=== PATIENT | female | born 1990 | race Caucasian/White ===

== ENCOUNTER 2017-03-24 19:04 | Emergency (ER) | payer BC ==
[~2017-03-24] VITALS: Ht 160 cm; Wt 108.3 kg
[2017-03-24 19:09] VITALS: TEMP 36.7; Ht 160 cm; Wt 108.3 kg
[2017-03-24] MEDS ORDERED: KETOROLAC TROMETHAMINE 30 MG/ML VIAL IV STA (19:36)
[2017-03-24] MEDS ORDERED: SODIUM CHLORIDE 0.9% 1000ML 1,000 ML IV STA (19:36)
[2017-03-24] MEDS ORDERED: PROCHLORPERAZINE 5 MG/ML 2 ML VIAL IV STA (19:36)
[2017-03-24] MEDS ORDERED: LITH1TAB10 PO (19:52)
[2017-03-24] MEDS ORDERED: PRED20TA PO (19:52)
[2017-03-24 20:23] LABS: URINE APPEARANCE CLEAR (CLEAR); URINE BILIRUBIN NEG (NEG); URINE COLOR YELLOW; URINE NITRITE NEG (NEG); URINE PH 5.5 (4.5-7.5); URINE SPECIFIC GRAVITY 1.016 (1.000-1.030); UROBILINOGEN NEG (NEG)
[2017-03-24 20:33] LABS: MANUAL MICROSCOPIC REQUIRED? NO; REVIEW REQ? NO
[2017-03-24 20:47] LABS: BASO % 0.2 %; BASO ABS # 0.02 K/uL (0-0.2); COMPLETE YES; EOS % 0.8 %; HEMATOCRIT 41.6 % (37-47); IG% 0.3 %; LYMPH % 32.2 %; LYMPH ABS # 3.58 K/uL (1.2-3.4); MEAN CORPUSCULAR HEMOGLOBIN 31.9 pg (25-34); MEAN CORPUSCULAR HGB CONC 35.1 g/dl (32-36); MEAN PLATELET VOLUME 9.1 fL (7.4-10.4); MONO % 7.6 %; NEUT % 58.9 %; PLATELET COUNT 224 K/uL (130-400); RED BLOOD COUNT 4.57 M/uL (4.2-5.4); WHITE BLOOD COUNT 11.12 K/uL (4.8-10.8)
[2017-03-24 21:09] LABS: BUN/CREATININE RATIO 14.9 (10-20); CALCIUM 8.5 mg/dl (8.5-10.1); CREATININE 0.53 mg/dl (0.60-1.20); POTASSIUM 3.1 mmol/L (3.5-5.1)
[2017-03-24 21:12] LABS: ALB/GLOB RATIO 1.4 (0.9-2)
--- NOTE | 2017-03-24 21:57 | EMERGENCY ROOM VISIT NOTE ---
ED Visit Note First contact with patient: 19:16 CHIEF COMPLAINT: Migraine headache HISTORY OF PRESENT ILLNESS: This 27-year-old female patient presented to the emergency department with her father complaints of a chronic daily migraine headache for several months. Patient is most concerned today about the possibility of an interaction between two of her medications, gabapentin and amitriptyline, both of which she has been on for several months. The patient states there is nothing new or different about her migraine headache today compared to other days and is not worse than normal, but she would like treatment for the migraine and possible. She describes the headache as left- sided, constant, throbbing with occasional sharp stabbing pains, 8/10. Associated symptoms of sensitivity to light and sound, nausea, occasional lightheadedness. The patient denies fever or chills recently, and there is no weakness or numbness of the extremities. There is no difficulty with speech or vision. No trauma to the head and no neck pain. The patient has taken Tylenol with no improvement. This is not the worst headache of the life and is similar to previous migraines. Patient reports a recent MRI of her brain a few months ago that was normal. The patient's father also provided some history in private , noting that the patient has been recently admitted to inpatient psych for bipolar a few months ago, and had several medication changes at that time. The patient lives in the [facility], but is visiting her parents who live here in [place]. The patient denies suicidal and homicidal ideation and contracts for safety. The patient does not desire any inpatient psychiatric interventions at this time. REVIEW OF SYSTEMS: A review of systems was performed with positives and pertinent negatives listed in the history of present illness. All other systems were reviewed and are negative. ALLERGIES: See chart MEDICATIONS: See chart PMH: See chart SOCIAL HISTORY: See chart PHYSICAL EXAM: Vital Signs: Reviewed Nurse's notes, vital signs stable. GENERAL : Pleasant and cooperative with a generally flat affect, appears uncomfortable wearing sunglasses in the room, but non toxic in appearance and in no acute distress. MENTAL STATUS: Alert, oriented, and coherent. HEENT: Normocephalic. PERRLA. EOMI. Nares patent without nuchal rigidity. Tympanic membranes pearly reese without erythema or effusion bilaterally. Mucous membranes moist. NECK: Supple, no nuchal rigidity, nontender, no lymphadenopathy. HEART: Regular rhythm and normal rate without murmurs, ectopy, gallops, or rubs. LUNGS: Clear to auscultation bilaterally without wheezes, rales or rhonchi. No dullness to percussion. No accessory muscle use. No retractions. SKIN: Normal. NEUROLOGICAL: Pupils are round, equal and react to light. The optic fundi are normal and the discs are flat. The patient moves all extremities well and the gait is normal. Normal speech. EMERGENCY DEPARTMENT COURSE: I examined the patient. The differential diagnosis includes tension headache, migraine, lithium toxicity, medication side effect, mass or mass effect, sinusitis, infection, tumor, among others. IV established and migraine cocktail ordered. Basic labs were obtained, which are fairly unremarkable. Mild leukocytosis most likely related to patient recently started on course of steroids. Mild hypokalemia. [place] level is subtherapeutic. Given the chronicity of patient's symptoms and her report of normal imaging elsewhere, with a completely normal neurologic exam, I do not feel any imaging is warranted today. I discussed all results with the patient and her father. I did review patient's medications, and while there is a possibility for side effects and interactions between some of her medications, I did caution the patient from abruptly stopping any of her medications as these should be weaned, and I stressed that she should be closely monitored by her PCP and psychiatrist. I also encouraged her to discuss her low lithium level with her provider. Patient verbalized understanding of this. Patient reports full resolution of her headache after IV fluids, compazine, and toradol. The patient was discharged home in stable condition and ambulatory. The patient was discussed with Dr. Mcfarland, who agrees with my plan and disposition. Current/Historical Medications Scheduled Amitriptyline HCl (Amitriptyline HCl), 25-75 MG PO HS Ascorbic Acid (Vitamin C), 500 MG PO DAILY B-Complex W/Biotin & Folic Aci (Super B-Complex), 1 CAP DAILY Calcium Citrate (Calcium Citrate), 250 MG PO DAILY Cholecalciferol (Vitamin D3), 2,000 UNITS PO DAILY Coenzyme Q10 (Ubidecarenone) (Co Q10), 1 CAP PO DAILY Fish Oil ([place]-3), 1 CAP PO DAILY Gabapentin (Neurontin), 300 MG PO QAM Gabapentin (Neurontin), 300 MG PO HS Lactobacillus (Probiotic), 1 CAP PO DAILY [place] Carbonate Ext Rel (Lithobid Ext Rel), 900 MG PO HS Loratadine (Claritin), 10 MG PO DAILY Multiple Vitamins W/ Minerals (Womens Multi), 1 CAP PO DAILY Prednisone (Prednisone), 20 MG PO DIRECTED Sertraline (Zoloft), 100 MG PO DAILY Topiramate (Topamax), 200 MG PO HS [Triple Mag Complex], 400 MG PO DAILY Scheduled PRN Quetiapine Fumarate (Seroquel), 25 MG PO TID PRN for Anxiety/Agitation Allergies Coded Allergies: Codeine (Verified Adverse Reaction, Unknown, sleepiness, 03/24/17) Uncoded Allergies: WOOL (Allergy, Unknown, rash, 03/24/17) Vital Signs Date Time Temp Pulse Resp B/P (MAP) Pulse Ox O2 Delivery O2 Flow Rate FiO2 03/24/17 21:46 66 20 138/71 97 Room Air 03/24/17 19:09 36.7 96 18 147/87 97 Room Air Laboratory Results 03/24/17 20:30 Red Blood Count 4.57, Mean Corpuscular Volume 91.0, Mean Corpuscular Hemoglobin 31.9, Mean Corpuscular Hemoglobin Concent 35.1, Mean Platelet Volume 9.1, Neutrophils (%) (Auto) 58.9, Lymphocytes (%) (Auto) 32.2, Monocytes (%) (Auto) 7.6, Eosinophils (%) (Auto) 0.8, Basophils (%) (Auto) 0.2, Neutrophils # (Auto) 6.56, Lymphocytes # (Auto) 3.58, Monocytes # (Auto) 0.84, Eosinophils # (Auto) 0.09, Basophils # (Auto) 0.02 03/24/17 20:30 Test 03/24/17 19:44 03/24/17 20:30 Urine Color YELLOW Urine Appearance CLEAR (CLEAR) Urine pH 5.5 (4.5-7.5) Urine Specific [place] 1.016 (1.000-1.030) Urine Protein NEG (NEG) Urine Glucose (UA) NEG (NEG) Urine Ketones NEG (NEG) Urine Occult Blood NEG (NEG) Urine Nitrite NEG (NEG) Urine Bilirubin NEG (NEG) Urine Urobilinogen NEG (NEG) Urine Leukocyte Esterase NEG (NEG) Urine Test NEG (NEG) White Blood Count 11.12 K/uL (4.8-10.8) Red Blood Count 4.57 M/uL (4.2-5.4) Hemoglobin 14.6 g/dL (12.0-16.0) Hematocrit 41.6 % (37-47) Mean Corpuscular Volume 91.0 fL (80-100) Mean Corpuscular Hemoglobin 31.9 pg (25-34) Mean Corpuscular Hemoglobin Concent 35.1 g/dl (32-36) Platelet Count 224 K/uL (130-400) Mean Platelet Volume 9.1 fL (7.4-10.4) Neutrophils (%) (Auto) 58.9 % Lymphocytes (%) (Auto) 32.2 % Monocytes (%) (Auto) 7.6 % Eosinophils (%) (Auto) 0.8 % Basophils (%) (Auto) 0.2 % Neutrophils # (Auto) 6.56 K/uL (1.4-6.5) Lymphocytes # (Auto) 3.58 K/uL (1.2-3.4) Monocytes # (Auto) 0.84 K/uL (0.11-0.59) Eosinophils # (Auto) 0.09 K/uL (0-0.5) Basophils # (Auto) 0.02 K/uL (0-0.2) RDW Standard Deviation 42.8 fL (36.4-46.3) RDW Coefficient of Variation 12.8 % (11.5-14.5) Immature Granulocyte % (Auto) 0.3 % Immature Granulocyte # (Auto) 0.03 K/uL (0.00-0.02) Anion Gap 9.0 mmol/L (3-11) Est Creatinine Clear Calc Drug Dose 184.8 ml/min Estimated GFR () 148.7 Estimated GFR (Non- 128.3 BUN/Creatinine Ratio 14.9 (10-20) Calcium Level 8.5 mg/dl (8.5-10.1) Total Bilirubin 0.4 mg/dl (0.2-1) Aspartate Amino Transf (AST/SGOT) 8 U/L (15-37) Alanine Aminotransferase (ALT/SGPT) 17 U/L (12-78) Alkaline Phosphatase 58 U/L (45-117) Total Protein 6.0 gm/dl (6.4-8.2) Albumin 3.5 gm/dl (3.4-5.0) Globulin 2.5 gm/dl (2.5-4.0) Albumin/Globulin Ratio 1.4 (0.9-2) [place] Level < 0.2 mMOL/L (0.6-1.2) Medications Administered Medications (Trade) Dose Ordered Sig/Trina Route Start Time Stop Time Status Last Admin Dose Admin Prochlorperazine Edisylate (Compazine Inj) 10 mg NOW STAT IV 03/24/17 19:36 03/24/17 19:39 DC 03/24/17 20:20 10 MG Sodium Chloride 1,000 ml @ 999 mls/hr Q1H1M STAT IV 03/24/17 19:36 03/24/17 20:36 DC 03/24/17 20:19 999 MLS/HR Ketorolac Tromethamine (Toradol Inj) 15 mg NOW STAT IV 03/24/17 19:36 03/24/17 19:39 DC 03/24/17 20:19 15 MG Departure Information Impression Primary Impression: Chronic headache Dispostion Home / Self-Care Condition GOOD Referrals No Doctor, Assigned (PCP) Patient Instructions ED Diet High Potassium, ED Headache Migraine, [facility] Additional Instructions Rest today in a quiet, peaceful, dark environment and get a full 8-10 hrs of sleep tonight. Avoid loud noises, smoke/smoking, alcohol, bright lights, stress, or physical exertion today and tomorrow to minimize the chance the headache may return. Continue current medications as prescribed. Ibuprofen(Motrin, Advil) may be used for fever or pain. Use 600mg every 6-8 hours as needed. Take with food. Avoid using more than 2400mg in a 24 hour period. Do not use 2400mg per day for more than three consecutive days without physician direction. Prolonged inappropriate use can lead to stomach upset or ulcers. (AND/OR) Acetaminophen(Tylenol) may be used for fever or pain. Use 1000mg every 8 hours as needed. Avoid using more than 3000mg in a 24 hour period. Return to the ER for passing out, severe worsening of headache, vision problems , neck stiffness/pain, fevers, persistent vomiting, worsening of your condition , or for any other concerns. Follow up with your primary physician, neurologist, and psychiatrist in the next week for a recheck of your current condition and to further discuss medication changes and ongoing management of your headaches. Problem Qualifiers Primary Impression: Chronic headache Headache type: unspecified
[2017-03-24 22:50] VITALS: BP 131/78; PULSE 66; O2SAT 98
== END 2017-03-24 22:50 | disposition home or self-care (01) ==
LOC: C.EDB 19:06
DX: R51 Headache (principal); F31.9 Bipolar disorder, unspecified

== ENCOUNTER 2017-04-10 16:27 | Emergency (ER) | payer BC ==
[~2017-04-10] VITALS: Ht 162.6 cm; Wt 110.0 kg
[~2017-04-10 16:27] MED LIST: LITH1TAB10 PO; PRED20TA PO
[2017-04-10 16:32] VITALS: Ht 162.6 cm; Wt 110.0 kg
[2017-04-10] MEDS ORDERED: SODIUM CHLORIDE 0.9% 1000ML 1,000 ML IV STA (16:55)
[2017-04-10] MEDS ORDERED: RISP3TAB12 PO (17:04)
[2017-04-10] MEDS ORDERED: LITH300T2 PO (17:04)
[2017-04-10] MEDS ORDERED: PREG1CAP28 PO (17:04)
[2017-04-10 17:14] LABS: BASO % 0.3 %; BASO ABS # 0.02 K/uL (0-0.2); COMPLETE YES; EOS % 0.9 %; HEMATOCRIT 39.5 % (37-47); IG% 0.1 %; LYMPH % 25.9 %; LYMPH ABS # 2.01 K/uL (1.2-3.4); MEAN CELL VOLUME 89.4 fL (80-100); MEAN CORPUSCULAR HEMOGLOBIN 31.2 pg (25-34); MEAN CORPUSCULAR HGB CONC 34.9 g/dl (32-36); MONO % 8.9 %; NEUT % 63.9 %; PLATELET COUNT 202 K/uL (130-400); RED BLOOD COUNT 4.42 M/uL (4.2-5.4); WHITE BLOOD COUNT 7.77 K/uL (4.8-10.8)
[2017-04-10 17:30] VITALS: TEMP 36.4
[2017-04-10 17:37] LABS: AST/SGOT 9 U/L (15-37); BLOOD UREA NITROGEN 4 mg/dl (7-18); BUN/CREATININE RATIO 7.7 (10-20); CALCIUM 8.6 mg/dl (8.5-10.1); CARBON DIOXIDE 24 mmol/L (21-32); CHLORIDE 110 mmol/L (98-107); CREATININE 0.51 mg/dl (0.60-1.20); GLUCOSE 89 mg/dl (70-99); SODIUM 141 mmol/L (136-145)
[2017-04-10 17:49] LABS: ALB/GLOB RATIO 1.5 (0.9-2); ALKALINE PHOSPHATASE 61 U/L (45-117); ALT/SGPT 20 U/L (12-78)
[2017-04-10] MEDS ORDERED: LORAZEPAM 0.5 MG TAB SL STA (17:57)
[2017-04-10] MEDS ORDERED: GADAVIST IV PRN (18:30)
--- NOTE | 2017-04-10 18:31 | DIAGNOSTIC IMAGING REPORT ---
BRAIN COMBO FOR MS CLINICAL HISTORY: 27 years-old Female presenting with left sided numbness, vision problems, headache started 2 days ago worsened today, frequent headaches, trauma to head on car door in November, history of leukemia at 1 years of age. TECHNIQUE: Multisequence, multiplanar MR imaging of the brain was performed before and after the administration of intravenous contrast. IV contrast: 10 mL of Gadavist. COMPARISON: None. FINDINGS: Ventricles and sulci normal in size. Brain parenchyma normal in appearance with preserved reese-white differentiation. No abnormal enhancement. No mass effect or midline shift. No hemorrhage or acute territorial infarct. No extra-axial fluid collection. Paranasal sinuses and mastoid air cells clear. Calvarium intact. IMPRESSION: No acute intracranial abnormality or abnormal enhancement. Electronically signed by: Terrence Brizuela M.D. 04/10/2017 6:30 PM Dictated Date/Time: 04/10/2017 6:25 PM
[2017-04-10] MEDS ORDERED: PROCHLORPERAZINE 5 MG/ML 2 ML VIAL IV STA (19:19)
[2017-04-10] MEDS ORDERED: DiphenhydrAMINE HCL 50 MG/ML VIAL IV STA (19:19)
[2017-04-10] MEDS ORDERED: ASCO-63 PO (19:52)
[2017-04-10] MEDS ORDERED: CALC250T8 PO (19:52)
[2017-04-10] MEDS ORDERED: MULT1CAP3 PO (19:52)
[2017-04-10] MEDS ORDERED: TOPI100T20 PO (19:52)
[2017-04-10] MEDS ORDERED: COEN1CAP28 PO (19:52)
[2017-04-10] MEDS ORDERED: GABA-113 PO ×2 (19:52)
[2017-04-10] MEDS ORDERED: LACT1CAP6 PO (19:52)
[2017-04-10] MEDS ORDERED: AMT25 PO (19:52)
[2017-04-10] MEDS ORDERED: CHOL2000 PO (19:52)
[2017-04-10] MEDS ORDERED: SERT-234 PO (19:52)
[2017-04-10] MEDS ORDERED: QUET1TAB30 PO (19:52)
[2017-04-10] MEDS ORDERED: OMEG10007 PO (19:52)
[2017-04-10] MEDS ORDERED: CLR10 PO (19:52)
[2017-04-10] MEDS ORDERED: [UNRECOGNIZED DRUG - OTHER] PO (19:52)
[2017-04-10] MEDS ORDERED: B-CO1CAP5 PO (19:52)
--- NOTE | 2017-04-10 20:20 | EMERGENCY ROOM VISIT NOTE ---
History First contact with patient: 16:38 Chief Complaint: HEADACHE Stated Complaint: HEADACHE History of Present Illness The patient is a 27 year old female who presents to the Emergency Room with complaints of pain in her head. The patient states that she has had headaches for months. She has a history of migraines for "a long time." The patient states that she closed her head in a car door 3-4 months ago and has had worsening headaches since then. The pain is throughout the entire head. She states that the pain fluctuates, but is present every day. She reports she has had "a clear liquid" running from her nose intermittently. She had a CT scan a month ago at an emergency department in [place]. She states that she was supposed to follow-up with a neurologist, but missed her appointment. She has had 2 MRIs in the past for her migraines which were negative. She states she has not had an MRI recently. Her symptoms worsen when she is chewing hard food. She states that 1.5 months ago, she saw flashes of light for a few minutes. She also states that there was an episode recently where her left arm and leg went numb and then were burning. She is concerned that she could have MS. Her father is concerned that she could have a CSF leak, as he has a friend who had 1 and the friend feels that these symptoms are similar. The patient denies any recent illness, fevers/chills, neck pain/stiffness, confusion, blurred vision or slurred speech. She admits to marijuana use. She does not take any medications at home for her headaches. Review of Systems A complete 10 point review of systems was reviewed with the patient with pertinent positives and negatives as per history of present illness. All else were negative. Social History Smoking Status: Current Some Day Smoker Housing Status: lives with family Current/Historical Medications Scheduled Amitriptyline HCl (Amitriptyline HCl), 25-75 MG PO HS Ascorbic Acid (Vitamin C), 500 MG PO DAILY B-Complex W/Biotin & Folic Aci (Super B-Complex), 1 CAP PO DAILY Calcium Citrate (Calcium Citrate), 250 MG PO DAILY Cholecalciferol (Vitamin D3), 2,000 INTER.UNIT PO DAILY Coenzyme Q10 (Ubidecarenone) (Co Q10), 50 MG PO DAILY Fish Oil ([place]-3), 1 CAP PO DAILY Gabapentin (Neurontin), 300 MG PO QAM Gabapentin (Neurontin), 300 MG PO HS Lactobacillus (Probiotic), 1 CAP PO DAILY [place] Carbonate ([place] Carbonate), 900 MG PO HS Loratadine (Claritin), 10 MG PO DAILY Multiple Vitamins W/ Minerals (Womens Multi), 1 CAP PO DAILY Pregabalin (Lyrica), 75 MG PO BID Risperidone (Risperdal), 3 MG PO DAILY Sertraline (Zoloft), 100 MG PO DAILY Topiramate (Topamax), 200 MG PO HS [Triple Mag Complex], 400 MG PO DAILY Scheduled PRN Quetiapine Fumarate (Seroquel), 25 MG PO TID PRN for Anxiety/Agitation Physical Exam Vital Signs Date Time Temp Pulse Resp B/P (MAP) Pulse Ox O2 Delivery O2 Flow Rate FiO2 04/10/17 20:30 82 18 116/63 99 04/10/17 20:10 82 16 128/84 99 Room Air 04/10/17 18:39 81 20 134/87 100 Room Air 04/10/17 17:30 36.4 04/10/17 16:32 82 18 137/88 99 Room Air Physical Exam VITALS: Vitals are noted on the nurse's note and reviewed by myself. Vital signs stable. GENERAL: This is a 27-year-old female, in no acute distress, nondiaphoretic, well-developed well-nourished. HEAD: Normocephalic atraumatic. EARS: External auditory canals clear, tympanic membranes pearly reese without erythema or effusion bilaterally. EYES: Pupils equal round and reactive to light and accommodation. Conjunctivae without injection, sclerae without icterus. Extraocular movements intact. MOUTH: Mucous membranes moist. Tonsils are not enlarged. NECK: Supple without nuchal rigidity. No lymphadenopathy. No meningismus. HEART: Regular rate and rhythm without murmurs gallops or rubs. LUNGS: Clear to auscultation bilaterally without wheezes, rales or rhonchi. MUSCULOSKELETAL: Full range of motion throughout. Strength 5/5 throughout. NEURO: Patient was alert and oriented to person place and time. Normal sensation to light and sharp touch. No focal neurological deficits. Normal finger to nose testing. Medical Decision & Procedures ER Provider Diagnostic Interpretation: BRAIN COMBO FOR MS CLINICAL HISTORY: 27 years-old Female presenting with left sided numbness, vision problems, headache started 2 days ago worsened today, frequent headaches, trauma to head on car door in November, history of leukemia at 1 years of age. TECHNIQUE: Multisequence, multiplanar MR imaging of the brain was performed before and after the administration of intravenous contrast. IV contrast: 10 mL of Gadavist. COMPARISON: None. FINDINGS: Ventricles and sulci normal in size. Brain parenchyma normal in appearance with preserved reese-white differentiation. No abnormal enhancement. No mass effect or midline shift. No hemorrhage or acute territorial infarct. No extra-axial fluid collection. Paranasal sinuses and mastoid air cells clear. Calvarium intact. IMPRESSION: No acute intracranial abnormality or abnormal enhancement. Laboratory Results 04/10/17 17:05 Red Blood Count 4.42, Mean Corpuscular Volume 89.4, Mean Corpuscular Hemoglobin 31.2, Mean Corpuscular Hemoglobin Concent 34.9, Mean Platelet Volume 9.0, Neutrophils (%) (Auto) 63.9, Lymphocytes (%) (Auto) 25.9, Monocytes (%) (Auto) 8.9, Eosinophils (%) (Auto) 0.9, Basophils (%) (Auto) 0.3, Neutrophils # (Auto) 4.97, Lymphocytes # (Auto) 2.01, Monocytes # (Auto) 0.69, Eosinophils # (Auto) 0.07, Basophils # (Auto) 0.02 04/10/17 17:05 Test 04/10/17 00:00 04/10/17 17:05 Urine Color YELLOW Urine Appearance CLEAR (CLEAR) Urine pH 8.0 (4.5-7.5) Urine Specific [place] 1.012 (1.000-1.030) Urine Protein NEG (NEG) Urine Glucose (UA) NEG (NEG) Urine Ketones NEG (NEG) Urine Occult Blood NEG (NEG) Urine Nitrite NEG (NEG) Urine Bilirubin NEG (NEG) Urine Urobilinogen NEG (NEG) Urine Leukocyte Esterase NEG (NEG) Urine Test NEG (NEG) Urine Opiates Screen NEG (NEG) Urine Methadone, Qualitative NEG (NEG) Urine Barbiturates NEG (NEG) Urine Phencyclidine (PCP) Level NEG (NEG) Ur Amphetamine/Methamphetamine NEG (NEG) MDMA (Ecstasy) Screen NEG (NEG) Urine Benzodiazepines Screen NEG (NEG) Urine Cocaine Metabolite NEG (NEG) Urine Marijuana (THC) POS (NEG) White Blood Count 7.77 K/uL (4.8-10.8) Red Blood Count 4.42 M/uL (4.2-5.4) Hemoglobin 13.8 g/dL (12.0-16.0) Hematocrit 39.5 % (37-47) Mean Corpuscular Volume 89.4 fL (80-100) Mean Corpuscular Hemoglobin 31.2 pg (25-34) Mean Corpuscular Hemoglobin Concent 34.9 g/dl (32-36) Platelet Count 202 K/uL (130-400) Mean Platelet Volume 9.0 fL (7.4-10.4) Neutrophils (%) (Auto) 63.9 % Lymphocytes (%) (Auto) 25.9 % Monocytes (%) (Auto) 8.9 % Eosinophils (%) (Auto) 0.9 % Basophils (%) (Auto) 0.3 % Neutrophils # (Auto) 4.97 K/uL (1.4-6.5) Lymphocytes # (Auto) 2.01 K/uL (1.2-3.4) Monocytes # (Auto) 0.69 K/uL (0.11-0.59) Eosinophils # (Auto) 0.07 K/uL (0-0.5) Basophils # (Auto) 0.02 K/uL (0-0.2) RDW Standard Deviation 40.0 fL (36.4-46.3) RDW Coefficient of Variation 12.3 % (11.5-14.5) Immature Granulocyte % (Auto) 0.1 % Immature Granulocyte # (Auto) 0.01 K/uL (0.00-0.02) Anion Gap 7.0 mmol/L (3-11) Est Creatinine Clear Calc Drug Dose 197.4 ml/min Estimated GFR () > 150.0 Estimated GFR (Non- 129.9 BUN/Creatinine Ratio 7.7 (10-20) Calcium Level 8.6 mg/dl (8.5-10.1) Magnesium Level 2.0 mg/dl (1.8-2.4) Total Bilirubin 0.7 mg/dl (0.2-1) Aspartate Amino Transf (AST/SGOT) 9 U/L (15-37) Alanine Aminotransferase (ALT/SGPT) 20 U/L (12-78) Alkaline Phosphatase 61 U/L (45-117) Total Protein 6.2 gm/dl (6.4-8.2) Albumin 3.7 gm/dl (3.4-5.0) Globulin 2.5 gm/dl (2.5-4.0) Albumin/Globulin Ratio 1.5 (0.9-2) Thyroid Stimulating Hormone (TSH) 2.230 uIu/ml (0.300-4.500) Medications Administered Medications (Trade) Dose Ordered Sig/Trina Route Start Time Stop Time Status Last Admin Dose Admin Sodium Chloride 1,000 ml @ 999 mls/hr Q1H1M STAT IV 04/10/17 16:55 04/10/17 17:55 DC 04/10/17 17:04 999 MLS/HR ED Course The patient was evaluated as above. Labs were drawn and IV access was obtained. Patient was medicated with 1 L normal saline solution. MRI of the brain was performed and read by radiology as above. Patient was reevaluated and findings were discussed. She requested something for her headache. The patient was ordered Decadron and Benadryl. I reevaluated the patient before this was given and she stated that she felt better. These meds were not given. Discharge instructions were reviewed with the patient. The patient verbalized understanding of my assessment and treatment plan and was discharged home in good condition. Medical Decision The differential diagnosis includes acute intracranial bleed, meningitis, encephalitis, mass or mass effect, sinusitis, infection, tumor, headache, temporal arteritis and carbon monoxide exposure, and migraine. The patient is a 27-year-old female who presents today complaining of a headache for the past several months. Labs revealed no leukocytosis or anemia. Patient is mildly hypokalemic. There were no concerning electrolyte abnormalities. MRI was performed and did not show any evidence of MS or other acute findings within the head. I had a lengthy discussion with the patient and encouraged follow-up with a primary care provider and neurology. She was given information for a local neurologist. Of note, the patient stated that her symptoms improved during her stay despite not receiving any medications for the headache. Based on the patient's presentation and work up, I feel the patient is stable for outpatient treatment. The patient was educated to return to the emergency department for any worsening of their current condition or new/concerning symptoms. She will follow up with her PCP and neurology. Medication Reconcilliation Current Medication List: was personally reviewed by me Blood Pressure Screening Patient's blood pressure: Normal blood pressure Impression Primary Impression: Headache Departure Information Dispostion Home / Self-Care Condition GOOD Referrals No Doctor, Assigned (PCP) Patrice Chavez M.D. (MEDICINE) Patient Instructions My [facility] Additional Instructions Follow-up with a primary care provider. You have been provided the information for a neurologist. Call this number to schedule follow-up. MRI today was normal. Return to the emergency department with any worsening or new/concerning symptoms.
[2017-04-10 20:30] VITALS: BP 116/63; PULSE 82; O2SAT 99
[2017-04-10 20:36] LABS: URINE APPEARANCE CLEAR (CLEAR); URINE BILIRUBIN NEG (NEG); URINE COLOR YELLOW; URINE NITRITE NEG (NEG); URINE SPECIFIC GRAVITY 1.012 (1.000-1.030); UROBILINOGEN NEG (NEG); ZZUR CULT IF INDIC CLEAN CATCH NO
[2017-04-10 20:41] LABS: MANUAL MICROSCOPIC REQUIRED? NO; REVIEW REQ? NO
[2017-04-10 20:43] LABS: PREG INTERNAL NEGATIVE QC NEG CLEAR BACKGROUND; PREG INTERNAL POSITIVE QC POS CONTROL LINE
[2017-04-10 21:15] LABS: BENZODIAZEPINE, URINE NEG (NEG); COCAINE,URINE NEG (NEG); PHENCYCLIDINE, URINE NEG (NEG)
== END 2017-04-10 20:30 | disposition home or self-care (01) ==
LOC: EDBD 16:27 → C.EDC 16:29
DX: R51 Headache (principal); E87.6 Hypokalemia; F17.200 Nicotine dependence, unspecified, uncomplicated; Z79.899 Other long term (current) drug therapy